=== PATIENT | male | born 1995 | race Caucasian/White ===

== ENCOUNTER 2023-10-24 23:50 | Emergency (ER) | payer OTHER ==
[~2023-10-24] VITALS: Ht 167.6 cm; Wt 65.8 kg
[2023-10-24 23:58] VITALS: BP 118/93; PULSE 91; RESP 20; TEMP 98; O2SAT 98
[2023-10-25] MEDS ORDERED: AMOX-1230 PO (01:42)
[2023-10-25] MEDS ORDERED: IBUP-2213 PO (01:42)
[2023-10-25 02:25] VITALS: BP 118/93; PULSE 91; RESP 20; TEMP 98; O2SAT 98
== END 2023-10-25 02:25 | disposition home or self-care (01) ==
LOC: MED 23:50
DX: S03.2XXA Dislocation of tooth, initial encounter (principal); S01.511A Laceration without foreign body of lip, initial encounter; S60.312A Abrasion of left thumb, initial encounter; Z79.1 Long term (current) use of non-steroidal anti-inflammatories (NSAID); Z79.2 Long term (current) use of antibiotics; V87.8XXA Person injured in other specified noncollision transport accidents involving motor vehicle (traffic), initial encounter; Y93.55 Activity, bike riding; Y92.89 Other specified places as the place of occurrence of the external cause; Y99.8 Other external cause status
CPT/HCPCS: 90471; 90715; 99283